=== PATIENT | male | born 1955 | race Caucasian/White ===

== ENCOUNTER → 2017-02-08 | Outpatient (CLI) | payer OTHER | END | disposition home or self-care (01) | LOC: CFH 11:11 | PROVIDERS: ATTEND Internal Medicine Cardiovascular Disease | DX: I08.0 Rheumatic disorders of both mitral and aortic valves (principal); E78.5 Hyperlipidemia, unspecified; I10 Essential (primary) hypertension; Z86.73 Personal history of transient ischemic attack (TIA), and cerebral infarction without residual deficits | CPT/HCPCS: 93306 ==

== ENCOUNTER → 2018-04-04 | Outpatient (CLI) | payer OTHER | END | disposition home or self-care (01) | LOC: CVU 07:05 | PROVIDERS: ATTEND Internal Medicine Cardiovascular Disease | DX: I65.23 Occlusion and stenosis of bilateral carotid arteries (principal); E78.5 Hyperlipidemia, unspecified; E11.9 Type 2 diabetes mellitus without complications; I10 Essential (primary) hypertension; Z87.891 Personal history of nicotine dependence | CPT/HCPCS: 93880; 93922 ==

== ENCOUNTER → 2019-07-17 | Outpatient (CLI) | payer OTHER | END | disposition home or self-care (01) | LOC: CVU 06:54 | PROVIDERS: ATTEND Internal Medicine Cardiovascular Disease | DX: I08.0 Rheumatic disorders of both mitral and aortic valves (principal); I10 Essential (primary) hypertension; I73.9 Peripheral vascular disease, unspecified | CPT/HCPCS: 93306; 93922 ==

== ENCOUNTER 2019-09-21 17:14 | Inpatient (IN) | payer OTHER ==
[~2019-09-21] VITALS: Ht 175.3 cm; Wt 77.9 kg
[2019-09-21 18:36] LABS: ALANINE AMINOTRANSFERASE 18 U/L (12-78); CALCIUM 9.9 mg/dL (8.5-10.1); CHLORIDE 107 mmol/L (98-107); MEAN CORPUSCULAR HEMOGLOBIN 26.8 pg (27.5-34.5); MEAN CORPUSCULAR HGB CONC 32.8 g/dL (33.2-36.2); MEAN CORPUSCULAR VOLUME 81.7 fL (81-97); MEAN PLATELET VOLUME 8.1 fL (7.4-10.4); PLATELET COUNT 405 x10^3/uL (130-400); RED BLOOD COUNT 4.84 x10^6/uL (4.38-5.82); RED CELL DISTRIBUTION WIDTH 19.3 % (9.4-14.8)
[2019-09-21 18:39] LABS: ALKALINE PHOSPHATASE 87 U/L (45-117); BILIRUBIN,TOTAL 0.4 mg/dL (0.2-1.0)
[2019-09-21 18:44] LABS: ANION GAP 12 mmol/L (5-15)
[2019-09-21] MEDS ORDERED: LIDOCAINE 2%,20 ML JEL.PF.APP MM ONE ×2 (18:49→19:00)
--- NOTE | 2019-09-21 18:54 | NUR ---
[facility] CONTACTED ABOUT MRI RESULTS.
[2019-09-21 18:58] LABS: BASOPHILS # (AUTO) 0.07 x10^3/uL (0-0.1); BASOPHILS % (AUTO) 0 % (0-1); EOSINOPHILS # (AUTO) 0.19 x10^3/uL (0-0.4); EOSINOPHILS % (AUTO) 1 % (1-7); LYMPHOCYTES # (AUTO) 3.84 x10^3/uL (1-3.4); LYMPHOCYTES % (AUTO) 19 % (22-44); MD SCAN; MONOCYTES # (AUTO) 1.33 x10^3/uL (0.2-0.8); MONOCYTES % (AUTO) 7 % (2-9); NEUTROPHILS # (AUTO) 14.51 x10^3/uL (1.8-6.8); NEUTROPHILS % (AUTO) 73 % (42-75)
[2019-09-21 19:56] LABS: MICROSCOPIC INDICATED
[2019-09-21] MEDS ORDERED: CEFTRIAXONE PMX 1GM/50ML 50 ML IV ONE (20:00)
--- NOTE | 2019-09-21 20:04 | NUR ---
DR YASMANY LY.
[2019-09-21] MEDS ORDERED: CEFTRIAXONE PMX 1GM/50ML 50 ML ONE (20:18)
[2019-09-21] MEDS ORDERED: ONDANSETRON 2MG/ML, 2ML ONE (20:18)
[2019-09-21] MEDS ORDERED: MORPHINE SULFATE 4 MG/ML, 1ML ONE (20:19)
[2019-09-21] MEDS ORDERED: SODIUM BICARBONATE 8.4% 150 MEQ in DEXTROSE 5% 1,000 ML IV SCH (21:00)
[2019-09-21] MEDS ORDERED: SODIUM ZIRCONIUM CYCLOSILICATE 10 GM PO ONE (21:00)
[2019-09-21] MEDS ORDERED: MORPHINE SULFATE 4 MG/ML, 1ML IVPush PRN (21:00)
[2019-09-21] MEDS ORDERED: ONDANSETRON 2MG/ML, 2ML IVPush ONE (21:00)
[2019-09-21] MEDS ORDERED: SODIUM CHLORIDE 0.9%, 500ML IVBOLUS ONE (21:00)
[2019-09-21] MEDS ORDERED: DEXTROSE 50%, 50ML SYRINGE IVPush ONE (21:30)
[2019-09-21] MEDS ORDERED: INSULIN SINGLE DOSE, ER IVPush ONE (21:30)
[2019-09-21] MEDS ORDERED: SODIUM CHLORIDE 0.9% 1,000 ML IV SCH (21:35)
--- NOTE | 2019-09-21 21:56 | NUR ---
urine output for er post cath 1500 ml of milky, cloudy urine
--- NOTE | 2019-09-21 21:58 | NUR ---
call to give report and was told that this pt needs to go to cardiac tele so they were to call throughput.
[2019-09-21] MEDS ORDERED: HYDROcodone/APAP 5/325 TABLET PO PRN (22:00)
[2019-09-21] MEDS: SODIUM BICARBONATE 8.4% 150 MEQ in DEXTROSE 5% 1,000 ML IV SCH (22:30)
[2019-09-21 22:46] VITALS: BP 139/79
[2019-09-22 00:20] VITALS: BP 119/60
[2019-09-22 05:51] LABS: ANION GAP 13 mmol/L (5-15); CALCIUM 9.5 mg/dL (8.5-10.1); CHLORIDE 107 mmol/L (98-107)
[2019-09-22 05:53] LABS: CREATININE 2.72 mg/dL (0.7-1.3)
[2019-09-22 06:09] LABS: BASOPHILS # (AUTO) 0.04 x10^3/uL (0-0.1); BASOPHILS % (AUTO) 0 % (0-1); EOSINOPHILS # (AUTO) 0.19 x10^3/uL (0-0.4); EOSINOPHILS % (AUTO) 1 % (1-7); LYMPHOCYTES # (AUTO) 2.36 x10^3/uL (1-3.4); LYMPHOCYTES % (AUTO) 15 % (22-44); MD NO; MEAN CORPUSCULAR HEMOGLOBIN 27.3 pg (27.5-34.5); MEAN CORPUSCULAR HGB CONC 33.4 g/dL (33.2-36.2); MEAN CORPUSCULAR VOLUME 81.8 fL (81-97); MEAN PLATELET VOLUME 7.9 fL (7.4-10.4); MONOCYTES # (AUTO) 1.34 x10^3/uL (0.2-0.8); MONOCYTES % (AUTO) 8 % (2-9); NEUTROPHILS # (AUTO) 11.95 x10^3/uL (1.8-6.8); NEUTROPHILS % (AUTO) 75 % (42-75); PLATELET COUNT 319 x10^3/uL (130-400); RED BLOOD COUNT 4.52 x10^6/uL (4.38-5.82)
[2019-09-22] MEDS: INSULIN LISPRO 100 UNITS/ML, PEN SQ-INSULIN SCH ×4 (07:00→20:57)
[2019-09-22 07:15] VITALS: BP 116/71
[2019-09-22] MEDS: SODIUM BICARBONATE 8.4% 150 MEQ in DEXTROSE 5% 1,000 ML IV SCH ×2 (10:08→20:40)
[2019-09-22] MEDS: ACETAMINOPHEN 325 MG TABLET PO PRN ×2 (10:24→23:06)
[2019-09-22 13:55] VITALS: BP 112/64
[2019-09-22] MEDS ORDERED: TAMSULOSIN 0.4 MG CAP.ER.24H ONE (16:48)
[2019-09-22] MEDS: TAMSULOSIN 0.4 MG CAP.ER.24H PO SCH (17:04)
[2019-09-22] MEDS: HEPARIN 5,000 UNITS/ML, 1ML SQ SCH (17:04)
[2019-09-22 19:18] LABS: ANION GAP 10 mmol/L (5-15); CALCIUM 8.8 mg/dL (8.5-10.1); CHLORIDE 104 mmol/L (98-107); CREATININE 1.93 mg/dL (0.7-1.3)
[2019-09-22] MEDS: CEFTRIAXONE PMX 1GM/50ML 50 ML IV SCH (20:53)
[2019-09-22 21:00] VITALS: BP 114/63
[2019-09-22] MEDS: SODIUM CHLORIDE 0.9% 1,000 ML IV SCH (23:06)
[2019-09-23 00:34] VITALS: BP 106/65
[2019-09-23] MEDS ORDERED: CARV6.25 PO (01:03)
[2019-09-23] MEDS ORDERED: AMLO5TAB10 PO (01:03)
[2019-09-23] MEDS ORDERED: METF10007 PO (01:03)
[2019-09-23] MEDS ORDERED: LISI-420 PO (01:03)
[2019-09-23] MEDS ORDERED: ROSU10TA26 PO (01:03)
[2019-09-23] MEDS ORDERED: OMEP20CA20 PO (01:03)
[2019-09-23] MEDS ORDERED: ASPI-496 PO (01:03)
[2019-09-23] MEDS ORDERED: GLYB1.252 PO (01:03)
[2019-09-23] MEDS: HEPARIN 5,000 UNITS/ML, 1ML SQ SCH ×2 (04:16→17:34)
[2019-09-23 05:44] LABS: ANION GAP 9 mmol/L (5-15); CALCIUM 8.5 mg/dL (8.5-10.1); CHLORIDE 105 mmol/L (98-107)
[2019-09-23 05:48] LABS: BASOPHILS # (AUTO) 0.03 x10^3/uL (0-0.1); BASOPHILS % (AUTO) 0 % (0-1); EOSINOPHILS # (AUTO) 0.29 x10^3/uL (0-0.4); EOSINOPHILS % (AUTO) 2 % (1-7); LYMPHOCYTES # (AUTO) 3.19 x10^3/uL (1-3.4); LYMPHOCYTES % (AUTO) 27 % (22-44); MD NO; MEAN CORPUSCULAR HGB CONC 33.5 g/dL (33.2-36.2); MEAN CORPUSCULAR VOLUME 80.7 fL (81-97); MEAN PLATELET VOLUME 7.8 fL (7.4-10.4); MONOCYTES # (AUTO) 1.03 x10^3/uL (0.2-0.8); MONOCYTES % (AUTO) 9 % (2-9); NEUTROPHILS % (AUTO) 62 % (42-75); PLATELET COUNT 284 x10^3/uL (130-400); RED BLOOD COUNT 4.03 x10^6/uL (4.38-5.82); RED CELL DISTRIBUTION WIDTH 19.1 % (9.4-14.8)
[2019-09-23] MEDS: INSULIN LISPRO 100 UNITS/ML, PEN SQ-INSULIN SCH ×4 (07:00→20:47)
[2019-09-23] MEDS: ONDANSETRON 2MG/ML, 2ML IVPush PRN ×2 (07:41→17:34)
[2019-09-23 07:50] VITALS: BP 121/65
[2019-09-23] MEDS: TAMSULOSIN 0.4 MG CAP.ER.24H PO SCH (09:18)
[2019-09-23 13:15] VITALS: BP 113/67
[2019-09-23] MEDS: ACETAMINOPHEN 325 MG TABLET PO PRN (13:42)
[2019-09-23] MEDS: OMEPRAZOLE 20 MG CAPSULE.DR PO SCH (17:34)
[2019-09-23] MEDS: SODIUM CHLORIDE 0.9% 1,000 ML IV SCH (17:36)
[2019-09-23] MEDS: CEFTRIAXONE PMX 1GM/50ML 50 ML IV SCH (20:40)
[2019-09-23 20:49] VITALS: BP 117/71
[2019-09-24 01:26] VITALS: BP 109/69
[2019-09-24] MEDS: ACETAMINOPHEN 325 MG TABLET PO PRN (01:35)
[2019-09-24 04:38] LABS: BASOPHILS # (AUTO) 0.04 x10^3/uL (0-0.1); BASOPHILS % (AUTO) 0 % (0-1); EOSINOPHILS # (AUTO) 0.31 x10^3/uL (0-0.4); EOSINOPHILS % (AUTO) 2 % (1-7); LYMPHOCYTES # (AUTO) 3.34 x10^3/uL (1-3.4); LYMPHOCYTES % (AUTO) 26 % (22-44); MD NO; MEAN CORPUSCULAR HEMOGLOBIN 27.7 pg (27.5-34.5); MEAN CORPUSCULAR HGB CONC 33.7 g/dL (33.2-36.2); MEAN CORPUSCULAR VOLUME 82.3 fL (81-97); MEAN PLATELET VOLUME 7.3 fL (7.4-10.4); MONOCYTES # (AUTO) 1.03 x10^3/uL (0.2-0.8); MONOCYTES % (AUTO) 8 % (2-9); NEUTROPHILS # (AUTO) 8.32 x10^3/uL (1.8-6.8); NEUTROPHILS % (AUTO) 64 % (42-75); PLATELET COUNT 269 x10^3/uL (130-400); RED BLOOD COUNT 3.73 x10^6/uL (4.38-5.82); RED CELL DISTRIBUTION WIDTH 19.1 % (9.4-14.8)
[2019-09-24 04:49] LABS: ALBUMIN 2.8 g/dL (3.4-5.0); ANION GAP 7 mmol/L (5-15); CHLORIDE 105 mmol/L (98-107); CREATININE 1.14 mg/dL (0.7-1.3)
[2019-09-24] MEDS: HEPARIN 5,000 UNITS/ML, 1ML SQ SCH ×2 (05:17→16:00)
[2019-09-24] MEDS: OMEPRAZOLE 20 MG CAPSULE.DR PO SCH ×2 (05:17→16:00)
[2019-09-24 06:30] VITALS: BP 118/70
[2019-09-24] MEDS: INSULIN LISPRO 100 UNITS/ML, PEN SQ-INSULIN SCH ×3 (07:00→16:00)
[2019-09-24] MEDS ORDERED: ACETAMINOPHEN 325 MG TABLET PO PRN (07:18)
[2019-09-24] MEDS ORDERED: MAGNESIUM SULFATE PMX 2GM/50ML 50 ML IV SCH (09:00)
[2019-09-24] MEDS: TAMSULOSIN 0.4 MG CAP.ER.24H PO SCH (09:04)
[2019-09-24] MEDS: SODIUM CHLORIDE 0.9% 1,000 ML IV SCH (09:04)
[2019-09-24] MEDS ORDERED: MAGNESIUM HYDROXIDE 8%, 30ML UDC PO PRN (11:00)
[2019-09-24 12:19] VITALS: BP 126/67
[2019-09-24] MEDS ORDERED: CEFD300C37 PO (14:32)
[2019-09-24] MEDS ORDERED: TAMS-11 PO (15:34)
[2019-09-24] MEDS ORDERED: GADOTERATE 10 MMOL/20 ML VIAL ONE (16:43)
== END 2019-09-24 22:33 | disposition home or self-care (01) | DRG 871 ==
LOC: ED 21:15 → EDIP 21:31 → 5SO 22:23
PROVIDERS: ADMIT Internal Medicine; ATTEND Family Medicine
PROC: 0T9B70Z Drainage of Bladder with Drainage Device, Via Natural or Artificial Opening (ICD-10-PCS; principal; 2019-09-21)
DX: A41.9 Sepsis, unspecified organism (principal); N17.0 Acute kidney failure with tubular necrosis; E87.1 Hypo-osmolality and hyponatremia; E87.2 Acidosis; N13.6 Pyonephrosis; N13.8 Other obstructive and reflux uropathy; E11.9 Type 2 diabetes mellitus without complications; E87.5 Hyperkalemia; I10 Essential (primary) hypertension; N32.0 Bladder-neck obstruction; N40.1 Benign prostatic hyperplasia with lower urinary tract symptoms; R33.8 Other retention of urine; K86.9 Disease of pancreas, unspecified; Z86.73 Personal history of transient ischemic attack (TIA), and cerebral infarction without residual deficits; Z87.891 Personal history of nicotine dependence
CPT/HCPCS: 36415; 74176; 74183; 80048; 80053; 80069; 81001; 82962; 83605; 83690; 83735; 84145; 85025; 86301; 87040; 87077; 87086; 87186; 93005; 96365; 96375; 99291; G0103; G0378; J0696; J1644; J2405; J7070; A9575; J1815; J2270; J3475; J7030; J7040

== ENCOUNTER → 2020-02-21 | Outpatient (CLI) | payer OTHER ==
[~2020-02-21] MED LIST: AMLO-210 PO; ASPI-496 PO; CARV6.25 PO; CEFD300C37 PO; GLYB1.252 PO; LISI-420 PO; METF10007 PO; OMEP20CA20 PO; REGADENOSON 0.4 MG/5 ML SYRINGE ONE; ROSU10TA26 PO; TAMS-11 PO
== END | disposition home or self-care (01) ==
LOC: CFH 08:36
PROVIDERS: ATTEND Internal Medicine Cardiovascular Disease
DX: Z01.810 Encounter for preprocedural cardiovascular examination (principal)
CPT/HCPCS: 78452; 93017; A9502; J2785